=== PATIENT | male | born 1965 | race Caucasian/White ===

== ENCOUNTER 2019-04-25 08:50 | Emergency (ER) | payer BC, SELFPAY ==
--- NOTE | ~2019-04-25 | CT_ITS ---
EXAMINATION: CT abdomen pelvis wo con DATE: 04/25/2019 11:32 INDICATION: Flank pain. TECHNIQUE: Computed tomography (CT) of the abdomen and pelvis was performed without intravenous contr ast. Automated exposure control and iterative reconstruction technique were employed. The dose-length product was 940.96 mGy-cm. COMPARISON: CT abdomen and pelvis 01/03/2012 FINDINGS: The visualized portions of the lung bases demonstrate a 7 mm nodule in right upper lobe. No pleural effusion. The heart size is normal. There are coronary artery calcifications. No pericardial effusion. There is diffuse hepatic steatosis. There are gallstones in the gallbladder, which is norm al in size. The spleen, pancreas, adrenal glands, and left kidney are normal. There is a 3 mm stone i n right kidney. There are no dilated loops of bowel. The appendix is normal. There are no pathologica lly enlarged lymph nodes. There is no free intraperitoneal fluid. There is mild thoracolumbar spondyl osis. IMPRESSION: 1. 3 mm nonobstructing right kidney stone. 2. 7 mm pulmonary nodule, probably benign. Noncontrast low-dose chest CT is recommended in 6 months. 3. Cholelithiasis. No evidence of acute cholecystitis. Reviewed, dictated and finalized at location [facility] IMPRESSION: 1. 3 mm nonobstructing right kidney stone. 2. 7 mm pulmonary nodule, probably benign. Noncontrast low-dose chest CT is rec ommended in 6 months. 3. Cholelithiasis. No evidence of acute cholecystitis.
[2019-04-25 08:55] VITALS: BP 168/73; PULSE 68; RESP 20; TEMP 36.4; O2SAT 98
[2019-04-25 12:02] LABS: Basophils Percent Auto 0.3 % (0.2-1.2); Eosinophils Absolute Auto 0.1 K/mm3 (0-0.3); Eosinophils Percent Auto 0.7 % (0-4.4); Hematocrit 47.3 % (42.0-52.0); Hemoglobin 15.9 g/dL (14.0-18.0); Immature Granulocyte Absolute 0.03 K/mm3 (0.00-0.031); Immature Granulocyte Percent A 0.4 % (0-0.5); Lymphocytes Absolute Auto 2.06 K/mm3 (0.9-3.2); Lymphocytes Percent Auto 28.7 % (18.3-44.2); Mean Corpuscular HGB Conc 33.6 g/dl (32-36); Mean Corpuscular Hemoglobin 29.5 pg (26-34); Mean Corpuscular Volume 87.8 fl (80-100); Mean Platelet Volume 9.8 fl (7.4-10.4); Monocytes Absolute Auto 0.6 K/mm3 (0.1-0.6); Monocytes Percent Auto 7.7 % (2.6-8.5); Neutrophils Absolute Auto 4.5 K/mm3 (1.3-6.7); Neutrophils Percent Auto 62.2 % (45.5-73.1); Platelet Count Result 246 k/mm3 (150-375); Red Blood Count 5.39 M/mm3 (4.6-6.20); Red Cell Distribution Width 12.8 % (11.5-14.5); White Blood Count 7.2 K/mm3 (4.5-10.0)
[2019-04-25 12:04] LABS: Add Urine Microscopic? NO; Appearance Urine Clear (Clear); Bilirubin Urine Negative (Negative); Blood Urine Negative (Negative); Color Urine Yellow (Yellow); Glucose Urine UA Negative (Negative); Ketones Urine Negative (Negative); Leukocyte Esterase Ur Negative LEU/UL (Negative); Nitrate Urine Negative (Negative); Protein Urine Negative (Negative); Urobilinogen Urine Negative mg/dL (<2.0)
[2019-04-25 12:05] LABS: Specific Grav Ur 1.031 (1.001-1.035)
--- NOTE | 2019-04-25 12:11 | ED.BACK ---
HPI - Back Pain/Injury General Chief Complaint: Back Pain/Injury Stated Complaint: low back pain down legs Time Seen by Provider: 04/25/19 11:03 Source: patient Mode of arrival: ambulatory Limitations: no limitations History of Present Illness HPI Narrative: This is a 53 year old male that presents to the ER for low back pain x 1 week. Reports after lifting his dog a week ago he started having low back pain. Reports intermittently the pain shoots down his legs. Reports the pain is sharp. He has been taking ibuprofen at home. Reports history of kidney stones. Also reports some urinary frequency. Denies fever, abdominal pain, nausea, vomiting, dysuria, hematuria, saddle anesthesia, bowel/bladder incontinence, or weakness. Related Data Home Medications Medication Instructions Recorded Confirmed lamotrigine 04/25/19 Allergies Allergy/AdvReac Type Severity Reaction Status Date / Time No Known Allergies Allergy Verified 04/25/19 12:15 Review of Systems Review of Systems: Narrative: CONSTITUTIONAL: Denies fever GASTROINTESTINAL: Denies abdominal pain, nausea, vomiting GENITOURINARY: Denies dysuria or hematuria. MUSCULOSKELETAL: Reports back pain, joint pain, and myalgia. NEUROLOGIC: Denies numbness, or weakness. All systems reviewed & are unremarkable except as noted in HPI and below PMFSH Past Medical History Medical History (Updated 04/25/19 @ 12:17 by Sary Alicia PA-C) History of epilepsy Social History Social History (Updated 04/25/19 @ 12:14 by Sary Alicia PA-C) Smoking status: Never smoker Gender identity (if verbalized by the patient): Male Exam Narrative: Exam Narrative: GENERAL: Well-appearing, well-nourished, and in no acute distress. HEAD: Normocephalic, atraumatic. EYES: EOMI. CHEST: Clear to auscultation. No respiratory distress. No wheezes rales or rhonchi HEART: Regular rate and rhythm. No murmur heard. Normal peripheral pulses. ABDOMEN: Soft, nontender, nondistended, normal active bowel sounds. No CVA tenderness BACK: No midline spinal tenderness. Tender to palpation of lumbar paraspinal musculature EXTREMITIES: Normal range of motion. No edema. Strength equal in bilateral lower extremities (5/5). Normal patellar reflexes bilaterally SKIN: Warm, dry, no rash. NEURO: No focal deficits. Alert and oriented x3. PSYCH: Normal mood and affect Course Vital Signs Vital signs: Vital Signs Temperature 97.5 F L 04/25/19 08:55 Pulse Rate 68 04/25/19 08:55 Respiratory Rate 20 04/25/19 08:55 Blood Pressure 168/73 H 04/25/19 08:55 Pulse Oximetry 98 04/25/19 08:55 Temperature 98.1 F 04/25/19 12:12 Pulse Rate 56 L 04/25/19 12:12 Respiratory Rate 19 04/25/19 12:12 Blood Pressure 150/95 H 04/25/19 12:12 Pulse Oximetry 100 04/25/19 12:12 MDM - Back Pain/Injury MDM Narrative Medical decision making narrative: Patient presents the emergency department for low back pain x1 week. Reports a possible lifting injury a week ago. He is afebrile and nontoxic-appearing. Patient is neurologically intact. Also reports a history of kidney stones. CBC and metabolic panel is without acute changes. UA without acute changes. CT abdomen pelvis shows a 3 mm nonobstructing stone in the right kidney. Also shows a 7 mm pulmonary nodule, recommend chest CT follow-up in 6 months. Patient was updated on case findings. He will be given a primary care doctor and for follow-up. He was given warnings to return to the ER Lab Data Attestation: I reviewed the patient's lab results. Result diagrams: 04/25/19 11:52 04/25/19 11:52 Labs: Lab Results 04/25/19 04/25/19 04/25/19 Range/Units 11:52 11:52 11:52 WBC 7.2 (4.5-10.0) K/mm3 RBC 5.39 (4.6-6.20) M/mm3 Hgb 15.9 (14.0-18.0) g/dL Hct 47.3 (42.0-52.0) % MCV 87.8 (80-100) fl MCH 29.5 (26-34) pg MCHC 33.6 (32-36) g/dl RDW 12.8 (11.5-14.5) % Plt Count
[2019-04-25 12:12] VITALS: BP 150/95; PULSE 56; RESP 19; TEMP 36.7; O2SAT 100
[2019-04-25 12:13] LABS: Blood Urea Nitrogen 20 mg/dL (9-20); Calcium 9.6 mg/dL (8.4-10.2); Carbon Dioxide 26 mmol/L (22-30); Chloride 100 mmol/L (98-107); Estimated CRCL calculation 95 ml/min; Estimated Glomerular Filt Rate > 60; Glucose 105 mg/dL (75-110); Potassium 4.5 mmol/L (3.4-5.0); Sodium 139 mmol/L (137-145)
== END 2019-04-25 13:17 | disposition home or self-care (01) ==
PROVIDERS: Physician Assistant; Emergency Provider Emergency Medicine
DX: S39.012A Strain of muscle, fascia and tendon of lower back, initial encounter (principal); R91.1 Solitary pulmonary nodule; K80.20 Calculus of gallbladder without cholecystitis without obstruction; X50.0XXA Overexertion from strenuous movement or load, initial encounter
CPT/HCPCS: 36415; 74176; 80048; 81003; 85025; 99284